=== PATIENT | female | born 1985 | race Caucasian/White ===

== ENCOUNTER 2021-12-12 11:43 | Emergency (ER) | payer OTHER, SELFPAY ==
--- NOTE | ~2021-12-12 | CT_ITS ---
EXAMINATION: CT abdomen pelvis w con DATE: 12/12/2021 15:01 INDICATION: abd pain TECHNIQUE: Computed tomography (CT) of the abdomen and pelvis was performed with 100 mL Omnipaque-350 intravenous contrast. Automated exposure control and iterative reconstruction technique were employe d. The dose-length product was 301.22 mGy-cm. COMPARISON: None. FINDINGS: Lower thorax: Unremarkable Liver: Normal. Biliary/Gallbladder: Gallbladder is normal. No bile duct dilation. Pancreas: No mass or duct dilation. Spleen: Normal. Adrenals:No mass. Kidneys: No mass, stone, or hydronephrosis. GI tract: Distal esophageal and gastric wall edema No small or large bowel dilation. Normal appendix. Mild diffuse colonic wall edema. Mesentery/Peritoneum: No ascites, mass, or free air. Retroperitoneum: No mass. Pelvis: Moderate volume free fluid in the deep pelvis, within physiologic range. The pelvic organs ar e within normal limits. Soft Tissues: Soft tissues and body wall unremarkable. Bones: No acute osseous finding. IMPRESSION: Esophagitis/gastritis. Diffuse colitis, likely on an infectious or inflammatory basis, ischemia consi dered less likely unless there is a history of vasculitis. No other acute abdominopelvic process dete cted. Reviewed, dictated and finalized at location K. IMPRESSION: Esophagitis/gastritis. Diffuse colitis, likely on an infectious or inflammatory basis, ischemia considered less likely unless there is a history of vasculitis . No other acute abdominopelvic process detected.
[2021-12-12 11:45] VITALS: BP 112/60; PULSE 127; RESP 18; TEMP 37.1; O2SAT 97
[2021-12-12] MEDS: FAMOTIDINE 20 MG/2 ML VIAL IV PUSH (12:07)
[2021-12-12] MEDS: SODIUM CHLORIDE 0.9% IV 1,000 ML 999 ML IV CONT ×2 (12:07→12:53)
[2021-12-12] MEDS: ONDANSETRON INJ 4 MG/2 ML VIAL IV PUSH (12:07)
[2021-12-12 12:16] LABS: Basophils Percent Auto 0.5 % (0.2-1.2); Eosinophils Percent Auto 0.5 % (0-4.4); Hematocrit 42.3 % (37.0-47.0); Hemoglobin 14.4 g/dL (12.0-15.0); Immature Granulocyte Absolute 0.01 K/mm3 (0.00-0.031); Immature Granulocyte Percent A 0.1 % (0-0.5); Lymphocytes Absolute Auto 2.21 K/mm3 (0.9-3.2); Lymphocytes Percent Auto 26.3 % (18.3-44.2); Mean Corpuscular Hemoglobin 31.1 pg (26-34); Mean Corpuscular Volume 91.4 fl (80-100); Mean Platelet Volume 9.7 fl (7.4-10.4); Monocytes Absolute Auto 0.5 K/mm3 (0.1-0.6); Neutrophils Absolute Auto 5.6 K/mm3 (1.3-6.7); Neutrophils Percent Auto 66.6 % (45.5-73.1); Platelet Count Result 324 k/mm3 (150-375); Red Blood Count 4.63 M/mm3 (4.2-5.4); Red Cell Distribution Width 13.2 % (11.5-14.5); White Blood Count 8.4 K/mm3 (4.5-10.0)
[2021-12-12 12:49] LABS: Alanine Aminotransferase 12 U/L (6-35); Albumin Level 4.8 g/dL (3.5-5.1); Alkaline Phosphatase 81 U/L (38-126); Anion Gap 18 mmol/L (8-16); Aspartate Amino Transferase 27 U/L (14-36); Bilirubin,Total 0.9 mg/dL (0.2-1.3); Blood Urea Nitrogen 4 mg/dL (7-17); Calcium 9.3 mg/dL (8.4-10.2); Carbon Dioxide 18 mmol/L (22-30); Chloride 104 mmol/L (98-107); Estimated Glomerular Filt Rate > 60; Glucose 134 mg/dL (65-110); Lipase 43 U/L (23-300); Potassium 3.9 mmol/L (3.4-5.0); Sodium 140 mmol/L (137-145)
[2021-12-12 14:32] LABS: Appearance Urine Slightly Cloudy (Clear); Bilirubin Urine Negative (Negative); Blood Urine 2+ (Negative); Color Urine Yellow (Yellow); Glucose Urine UA Negative (Negative); Ketones Urine 1+ mg/dL (Negative); Leukocyte Esterase Ur Negative LEU/UL (Negative); Nitrate Urine Negative (Negative); Protein Urine Trace mg/dL (Negative); Specific Grav Ur >= 1.030 (1.001-1.035); Urobilinogen Urine 0.2 mg/dL (<2.0); pH Urine 5.5 (5.0-9.0)
[2021-12-12 14:35] VITALS: BP 122/72; PULSE 88; RESP 18; O2SAT 99
[2021-12-12] MEDS: MORPHINE SULFATE (*CRX) 4 MG/ML INJ IV PUSH (14:39)
[2021-12-12 14:43] LABS: Squamous Epithelial Cell Urine Few /hpf (Few)
[2021-12-12 14:44] LABS: Bacteria Urine 1+ /hpf
[2021-12-12 14:45] LABS: Mucus Urine Few /lpf
--- NOTE | 2021-12-12 14:45 | ED.GENADULT ---
HPI - General Adult General Chief complaint: Nausea/Vomiting/Diarrhea Stated complaint: vomiting Time Seen by Provider: 12/12/21 11:49 Source: RN notes reviewed History of Present Illness HPI narrative: Patient presents emergency department from home for nausea and vomiting patient states that she has been having numerous episodes of nausea vomiting today associated with abdominal pain. Abdominal pain is diffuse throughout the abdomen described as aching and cramping in nature. Denies any fevers or chills chest pain shortness of breath diarrhea or any other symptoms. Patient does have a history of cyclic vomiting syndrome states that she did smoke marijuana earlier today Related Data Allergies Allergy/AdvReac Type Severity Reaction Status Date / Time ibuprofen Allergy Itching Verified 12/12/21 11:48 Sulfa (Sulfonamide AdvReac Vomiting Verified 12/12/21 11:48 Antibiotics) Review of Systems Review of Systems: Gen.: Denies fevers or chills ENT: Denies congestion Respiratory: Denies shortness of breath or cough CV: Denies chest pain or palpitations GI: See HPI denies burning, urgency, frequency or hematuria Musculoskeletal: Denies back pain or muscle pain Neuro: Denies numbness, tingling, weakness or focal weakness Skin: Denies rash Except as documented, all other systems reviewed and negative PMFSH Past Medical History Medical History (Updated 12/12/21 @ 16:41 by Scott Morales DO) Patient denies significant medical history Social History Social History (Updated 12/12/21 @ 14:46 by Scott Morales DO) Substance use type: marijuana Exam Narrative: APPEARANCE: No acute distress, nontoxic, resting in bed HEENT: Normocephalic, atraumatic, OMM RESPIRATORY: No respiratory distress, clear to auscultation bilaterally with no rhonchi wheezing or rales CARDIOVASCULAR: RRR s murmur ABDOMINAL: Soft nondistended diffusely tender to palpation no rebound or guarding MUSCULOSKELETAl: Moves all extremities. No clubbing, cyanosis or edema. NEURO: Awake and alert. Following commands, speech normal, no focal deficits SKIN:: Warm, dry. Normal Color PSYCHIATRIC: Normal affect/mood Course Course Emergency Course: Patient states she is feeling better this time able to drink with no emesis Patient states that they are feeling much better at this time. States abdominal pain has improved. Repeat abdominal exam shows the patient's abdomen to be soft with no surgical abdomen present discussed with patient results of workup and diagnosis. Discussed need for follow-up with primary care physician, reasons to return to the emergency department in proper use of medication. Patient understands and agrees to current treatment plan Vital Signs Vital signs: Vital Signs Temperature 98.7 F 12/12/21 11:45 Pulse Rate 127 H 12/12/21 11:45 Respiratory Rate 18 12/12/21 11:45 Blood Pressure 112/60 12/12/21 11:45 Pulse Oximetry 97 12/12/21 11:45 Temperature 98.7 F 12/12/21 11:45 Pulse Rate 88 12/12/21 14:35 Respiratory Rate 18 12/12/21 14:35 Blood Pressure 122/72 12/12/21 14:35 Pulse Oximetry 99 12/12/21 14:35 Medical Decision Making MDM Narrative Medical decision making narrative: Patient's abdomen is soft without significant pain or signs of surgical abdomen on serial exams. Lab and x-ray evaluations are reviewed and patient is felt to be a reasonable candidate for outpatient management. Patient's CT scan does show some gastritis and will start on a PPI questionable colitis normal diarrhea doubtful colitis but I will start on a course of Augmentin to cover. Patient was instructed as to limitations of x-ray and laboratory evaluation and encouraged to return to ED or primary physician for repeat exam in 12 hours if continued or worsening pain patient did have a mild anion gap that I believe secondary to her dehydration with low bicarb and ketones in urine patient was given 2 L of fluids in the ER
[2021-12-12 14:46] LABS: Add Urine Microscopic? YES
[2021-12-12 16:21] LABS: Lactic Acid Reflex 1.9 mmol/L (0.7-2.0)
[2021-12-12] MEDS: AMOXICILLIN/CLAVULANATE K 875-125 MG TAB 1 TABLET PO (16:47)
[2021-12-12 16:52] VITALS: BP 132/62; PULSE 76; RESP 18; O2SAT 99
== END 2021-12-12 16:55 | disposition home or self-care (01) ==
PROVIDERS: Emergency Provider Emergency Medicine
DX: K29.70 Gastritis, unspecified, without bleeding (principal); K52.9 Noninfective gastroenteritis and colitis, unspecified
CPT/HCPCS: 36415; 74177; 80053; 81001; 81025; 83605; 83690; 85025; 96361; 96365; 96375; 99284; A9270; J0131; J2270; J2405; J7030; Q9967

== ENCOUNTER 2022-09-20 07:00 | Day surgery (SDC) | payer OTHER, SELFPAY ==
--- NOTE | 2022-09-18 11:15 | PC.NURSE ---
Report to the Outpatient Waiting Room, entrance under the green pavilion located off [facility], at time ___0600____ on date __09/20/22 . Planned Procedure Time: __729 . Time changes happen often and if your time is changed the preop area will call you the afternoon before. - You and your visitor will be asked to self-screen and do not enter if you have any COVID symptoms. - A mask is optional within the hospital at this time. Patients may have clear liquids (water, carbonated beverages, clear teas, apple juice) until 3 hours prior to surgery with a maximum of 20 ounces. - No food from midnight until time of surgery - Infants may have breast milk until 4 hours before surgery, infant formula 6 hours prior to surgery. - Children will be allowed to drink immediately following surgery. If applicable, please bring a bottle or sippy cup to assist with drinking. Juice, water, soda, and popsicles are readily available. For infants on formula, please bring formula the day of surgery. Pacifiers are allowed. Take the following medications with a SIP of water the morning of surgery: ____NONE DO NOT STOP ANY OF YOUR OTHER PRESCRIPTION MEDICATIONS PRIOR TO SURGERY ?EXCEPT THE FOLLOWING Medications to discontinue per physician ____VITAMIN D 3 3 DAYS PRE OP.LAST DOSE 09/18/22 Please no make-up, nail chinese, hairspray, perfume, deodorant, or body powder the day of surgery. No jewelry (including any body piercings) or valuables the day of surgery, leave them at home. Please take a shower or bath the night before, or the morning of, surgery with an antibacterial soap. Wear comfortable, loose fitting clothing. Children are encouraged to wear pajamas. - Jewelry must be removed prior to entering the operating room. Rings and piercings that are not removed may be cut off. - The hospital will not accept responsibility for valuables. - Please leave all valuables, including medications, at home the day of surgery. If you are going home after surgery, a licensed tractor trailer moving van driver must drive you home. - NO public transportation without another adult if you receive anesthesia. - We recommend that an adult stay with you for 24 hours following discharge. - We also recommend that you do not drive, make important decision, drink alcoholic beverages, or take any drugs that were not prescribed by your health care provider for at least 24 hours after your discharge time. For Pediatric surgeries, we recommend two adults accompany the child home. Follow any additional instructions given to you from your surgeon. If you or anyone in your household have experienced Covid symptoms in the past week, please notify your surgeon or the nurse liaison at the phone number below for possible testing. Telephone instructions given to ___PATIENT and asked if any additional questions and then verbalized understanding. Patient advised to call surgeon office or pre surgery nurse liaison [phone] if any additional questions.
[2022-09-18 11:25] VITALS: BMI 24.5
--- NOTE | 2022-09-19 14:17 | WPDANESEPPF ---
Anes - Initial Pre Proc Eval Procedure: Operation Date: 09/20/22 07:30 Proposed Procedures p Hysteroscopy, Holly Endometrial Ablation - Casey Pizano MD Date/Time: 09/19/22 14:17 Surgeon: Casey Pizano MD Pre Op Diagnosis: menorrhagia Patient Data Age: 37 Gender: F Height: 1.68 m Weight: 68.95 kg Allergies Allergy/AdvReac Type Severity Reaction Status Date / Time ibuprofen Allergy Itching Verified 09/18/22 11:03 NSAIDS (Non-Steroidal AdvReac Gastrointestinal Verified 09/18/22 11:03 Anti-Inflamma Upset Sulfa (Sulfonamide AdvReac Vomiting Verified 09/18/22 11:03 Antibiotics) Home Medications Medication Instructions Recorded Confirmed Type cholecalciferol (vitamin D3) 125 125 mcg PO DAILY 09/18/22 09/18/22 History mcg (5,000 unit) tablet omeprazole magnesium 20 mg 20 mg PO PRN PRN Heartburn 09/18/22 09/18/22 History tablet,delayed release (Prilosec OTC) Patient hx anesthesia problems: none Family hx anesthesia problems: none Results Review: All pre-operative results and documents have been reviewed as part of the pre-operative evaluation. [facility] Past Medical History Medical History (Updated 12/13/21 @ 00:00 by Harry Mejia) Patient denies significant medical history Social History Social History (Updated 12/12/21 @ 14:46 by Scott Morales DO) Smoking packs per day: 1 Smoking cigarettes per day: 20.0 Years smoked: 15 Smoking pack-years: 15.00 Smoking status: Former smoker Tobacco type: cigarettes Smoking end date: 04/09/19 Additional smoking assessment comments: QUIT VAPING August Substance use: current Substance use type: marijuana Last use: 09/18/22 Living arrangements: with family Spiritual care concerns: No Anes - Eval Final PreProcedure Day of Procedure 09/19/22 14:17 Patient weight: normal Heart: regular rate and rhythm Lungs: clear to auscultation and normal air movement Airway: Mallampati scale class II Neurological: alert and oriented Last oral intake: >/= 8 hours ASA classification: I Emergent: no Anesthetic plan: proceed Anesthesia type and monitoring: general GIVS Results Review: All pre-operative results and documents have been reviewed as part of the pre-operative evaluation. Informed Consent: The patient's anesthetic plan and its attendant risks and benefits were discussed with the patient/family/POA. Questions were solicited and answers provided to the satisfaction of the patient/family/POA.
--- NOTE | 2022-09-20 13:33 | OP_ITS ---
DATE OF PROCEDURE: 09/20/2022 PREOPERATIVE DIAGNOSIS: Menorrhagia. POSTOPERATIVE DIAGNOSIS: Menorrhagia. PROCEDURE PERFORMED: Endometrial ablation with hysteroscopy. COMPLICATIONS: None. ESTIMATED BLOOD LOSS: 5 cc. INDICATIONS: Heavy vaginal bleeding. FINDINGS: There was normal-appearing vulva, vagina, and cervix. The cervix with post LEEP scarring and stenosis. DESCRIPTION OF PROCEDURE: The patient taken to the operating room. She was prepped and draped in the dorsal lithotomy position. After induction of MAC anesthesia, the procedure was started. The speculum was placed in the vagina. The cervix grasped with a tenaculum. The cervix was injected with lidocaine at 3 and 9 o'clock. The cervix was dilated to about 1 cm. Hysteroscope was inserted. Normal-appearing endometrium was observed. The cervix was measured with a hysteroscope. The uterus was sounded. The intrauterine measurement was entered into the device. The device was inserted. The array was expanded. The balloon was inflated. The energy cycle was initiated. It was completed quickly. The array was collapsed. The balloon was collapsed. The instrument was withdrawn. The hysteroscope was reinserted. The endometrium appeared well ablated. She tolerated the procedure well. The speculum and tenaculum were removed. She was taken to the recovery room in stable condition. Sponge, lap, and needle counts were correct x2. D I MT: Tiff
--- NOTE | 2022-09-21 12:38 | SUR.PREOP ---
Paper documentation exists on this patient due to [employer] downtime on 09/20/22
== END 2022-09-20 09:23 | disposition home or self-care (01) ==
LOC: ANHSURGERY 16:15
PROVIDERS: PCP Emergency Medicine; Visit Provider Obstetrics & Gynecology
PROC: 0U5B8ZZ Destruction of Endometrium, Via Natural or Artificial Opening Endoscopic (ICD-10-PCS; CPT 58563; principal; 2022-09-20 07:30)
DX: N92.0 Excessive and frequent menstruation with regular cycle (principal); Z87.891 Personal history of nicotine dependence; F12.90 Cannabis use, unspecified, uncomplicated
CPT/HCPCS: 58563; J2001; J2704

== ENCOUNTER 2022-10-18 13:25 | Outpatient (CLI) | payer OTHER, SELFPAY ==
--- NOTE | ~2022-10-18 | XR_ITS ---
EXAMINATION: XR shoulder RT min 2V DATE: 10/18/2022 13:54 INDICATION: Right shoulder pain. TECHNIQUE: 4 views of right shoulder were obtained. COMPARISON: None. FINDINGS: Bone alignment is normal. No fracture. Joint spaces are well maintained. IMPRESSION: 1. Normal right shoulder. Reviewed, dictated and finalized at location E. IMPRESSION: 1. Normal right shoulder.
--- NOTE | ~2022-10-18 | XR_ITS ---
EXAMINATION:XR_[id number] DATE: 10/18/2022 13:53 INDICATION: Neck pain TECHNIQUE: AP, lateral, and odontoid views of the cervical spine are provided. COMPARISON: None FINDINGS: There is reversal of the normal cervical lordosis. Alignment is normal. The odontoid proces s is intact. No fracture is identified. Vertebral body heights and disk spaces are normal. Prevertebr al soft tissues are normal. IMPRESSION: 1. Reversal of the normal cervical lordosis which may be positional or due to muscular spasm. Reviewed, dictated and finalized at location B. IMPRESSION: 1. Reversal of the normal cervical lordosis which may be positional or due to m uscular spasm.
== END 2022-10-18 13:26 | disposition home or self-care (01) ==
PROVIDERS: PCP Emergency Medicine; Visit Provider Emergency Medicine
DX: M54.2 Cervicalgia (principal); M25.511 Pain in right shoulder
CPT/HCPCS: 72040; 73030

== ENCOUNTER 2022-12-25 14:52 | Outpatient (CLI) | payer OTHER, SELFPAY ==
--- NOTE | ~2022-12-25 | XR_ITS ---
EXAMINATION: XR lumbar spine 2-3V DATE: 12/25/2022 15:09 INDICATION: Low back pain. TECHNIQUE: 3 views of lumbar spine were obtained. COMPARISON: CT abdomen and pelvis 12/12/2021 FINDINGS: There is 4 degrees dextrocurvature of lumbar spine. Vertebral body heights and intervertebr al disc heights are normal. The facet joints are normal. IMPRESSION: 1. No etiology for the patient's symptoms. Reviewed, dictated and finalized at location E.
== END 2022-12-25 14:53 | disposition home or self-care (01) ==
PROVIDERS: PCP Emergency Medicine; Visit Provider Emergency Medicine
DX: M54.50 Low back pain, unspecified (principal)
CPT/HCPCS: 72100